=== PATIENT | male | born 1985 | race Caucasian/White ===

== ENCOUNTER 2016-09-22 21:25 | Emergency (ER) | payer MEDICAID ==
[~2016-09-22] VITALS: Ht 175.3 cm; Wt 92.0 kg
[2016-09-23] MEDS ORDERED: SODIUM CHLORIDE 0.9% 1,000 ML IV ONE (00:09)
[2016-09-23] MEDS ORDERED: ONDANSETRON HCL 4MG/2ML VIAL IV STA (00:09)
[2016-09-23 00:34] LABS: BASOPHILS % 0.7 % (0.0-2.0); EOSINOPHILS % 2.7 % (0.0-5.0); HEMATOCRIT. 44.6 % (42.0-52.0); HEMOGLOBIN. 15.1 g/dL (14.0-18.0); MEAN CORPUSCULAR HEMOGLOBIN 27.4 pg (28.0-32.0); MEAN CORPUSCULAR HGB CONC 33.8 g/dL (31.0-37.0); MEAN CORPUSCULAR VOLUME 80.9 fL (80.0-94.0); MEAN PLATELET VOLUME 6.9 fl (7.4-10.4); MONOCYTES % 9.9 % (2.0-8.0); NEUTROPHILS % 72.7 % (40.0-76.0); PLATELET 254 x1000/uL (130-400); RED BLOOD CELL COUNT 5.52 mill/uL (4.7-6.1); RED CELL DISTRIBUTION WIDTH 12.5 % (11.6-14.6)
[2016-09-23 00:38] LABS: CHLORIDE 103 mEq/L (98-107); INDEX HEMOLYSI 1 (1-3); INDEX ICTERIC 1 (1-4); INDEX LIPEMIC 1 (1-3)
[2016-09-23 00:39] LABS: INR 1.1
[2016-09-23 00:44] LABS: ANION GAP 14; CALCIUM 9.1 mg/dL (8.5-10.1); CARBON DIOXIDE 25 mEq/L (21-32); UREA NITROGEN BLOOD 16 mg/dL (7-21); eGFR > 60 mL/min (>60)
[2016-09-23 02:48] VITALS: BP 129/82
== END 2016-09-23 04:08 | disposition home or self-care (01) ==
LOC: ER 21:27
DX: R07.0 Pain in throat (principal); K92.0 Hematemesis; Z90.89 Acquired absence of other organs
CPT/HCPCS: 36415; 80048; 85025; 85610; 86850; 86900; 86901; 96374; 99284; J2405; J7030; Z7610